=== PATIENT | male | born 1940 | race Caucasian/White ===

== ENCOUNTER 2018-02-11 11:12 | Emergency (ER) | payer MEDICARE, BC ==
[2018-02-11] MEDS ORDERED: ONDANSETRON HCL 4 MG/2 ML SOL IV ONE (12:07)
[2018-02-11] MEDS ORDERED: ONDANSETRON HCL 4 MG/2 ML SOL ONE (12:08)
[2018-02-11 13:18] VITALS: TEMP 97
[2018-02-11 13:21] VITALS: PULSE 50
[2018-02-11 13:23] VITALS: BP 152/85; RESP 21; O2SAT 91
== END 2018-02-11 13:21 | disposition short-term general hospital (02) | DRG 87 ==
LOC: ED 11:12
DX: S06.5X0A Traumatic subdural hemorrhage without loss of consciousness, initial encounter (principal); S01.81XA Laceration without foreign body of other part of head, initial encounter
CPT/HCPCS: 70450; 72125; 96374; 99284; 99285; G0390; J2405; A6402

== ENCOUNTER 2018-05-24 11:26 | Observation (INO) | payer BC, MEDICARE ==
[2018-05-24] MEDS ORDERED: SODIUM CHLORIDE 0.9% 500 ML 500 ML IV ONE ×2 (11:56→13:35)
[2018-05-24 12:47] LABS: BASOPHILS % (AUTO) 2 % (0-3); EOSINOPHILS % (AUTO) 7 % (0-9); HEMATOCRIT 42 % (39-53); HEMOGLOBIN 13.1 gm/dl (13.5-17.7); LYMPHOCYTES % (AUTO) 27.3 % (10-50); MEAN CORPUSCULAR HEMOGLOBIN 31.5 pg (27.0-32.0); MEAN CORPUSCULAR HGB CONC 31.6 gm/dl (32.0-36.0); MONOCYTES % (AUTO) 12.5 % (0-12); NEUTROPHILS % (AUTO) 51.8 % (37-80)
[2018-05-24 12:50] LABS: ALBUMIN 3.5 gm/dl (3.4-5.0); BILIRUBIN,TOTAL 0.6 mg/dl (0.2-1.0); CALCIUM 8.6 mg/dl (8.5-10.1); CARBON DIOXIDE 24.1 mEq/L (21-32); CREATININE 1.98 mg/dl (0.80-1.30); POTASSIUM 4.8 mMol/L (3.5-5.1); THYROID STIMULATING HORMONE 2.189 uIU/ml (0.358-3.740); TOTAL PROTEIN 6.4 gm/dl (6.4-8.2)
[2018-05-24 12:53] LABS: MEAN CORPUSCULAR VOLUME 100 fL (80-100)
[2018-05-24 13:17] LABS: APPEARANCE,URINE Clear; BILIRUBIN,URINE NEGATIVE (NEGATIVE); COLOR,URINE Yellow; GLUCOSE, URINE (UA) NEGATIVE (NEGATIVE); KETONES,URINE 1+ (NEGATIVE); LEUKOCYTE ESTERASE ,URINE NEGATIVE (NEGATIVE); NITRATE,URINE NEGATIVE (NEGATIVE); OCCULT BLOOD,URINE 1+ (NEG-TRACE); PH,URINE 5.5; UROBILINOGEN,URINE 0.2 (0.2-1.0 EU)
[2018-05-24 13:34] LABS: AMPHETAMINES NEGATIVE (NEGATIVE); BACTERIA 1+ (< 1+); BARBITUATES NEGATIVE (NEGATIVE); BENZODIAZEPINES NEGATIVE (NEGATIVE); CANNABINOL(THC) NEGATIVE (NEGATIVE); COCAINE(COC) NEGATIVE (NEGATIVE); CRYSTALS NEGATIVE (0-3 AVE/HPF); METHADONE NEGATIVE (NEGATIVE); METHAMPHETAMINES NEGATIVE (NEGATIVE); OPIATES(OPI) NEGATIVE (NEGATIVE); OXYCODONE(OXY) NEGATIVE (NEGATIVE); PROPOXYPHENE(PPX) NEGATIVE (NEGATIVE); TRICYCLIC ANTIDEPRESSANTS POSITIVE (NEGATIVE)
[2018-05-24] MEDS ORDERED: PATIENT EDUCATION 1 MISC PRN (17:01)
[2018-05-24] MEDS ORDERED: NITROGLYCERIN 0.4 MG TAB SL PRN (18:19)
[2018-05-24] MEDS ORDERED: DOCUSATE SODIUM 100 MG SGL PO PRN (18:19)
[2018-05-24] MEDS: SODIUM CHLORIDE 0.9% 1000ML 1,000 ML IV SCH (19:41)
[2018-05-24] MEDS ORDERED: METOPROLOL SUCCINATE 50 MG ER TAB ONE (21:25)
[2018-05-24] MEDS: QUETIAPINE FUMARATE 25 MG TAB PO SCH (21:28)
[2018-05-24] MEDS: BUPROPION HCL 150 MG PO SCH (21:28)
[2018-05-24] MEDS: METOPROLOL SUCCINATE 25 MG TAB.ER.24H PO SCH (21:29)
[2018-05-24 21:35] VITALS: O2SAT 95
[2018-05-25] MEDS: SODIUM CHLORIDE 0.9% 1000ML 1,000 ML IV SCH (05:50)
[2018-05-25 07:32] LABS: CALCIUM 8.1 mg/dl (8.5-10.1); CARBON DIOXIDE 21.9 mEq/L (21-32); CREATININE 1.71 mg/dl (0.80-1.30); POTASSIUM 4.1 mMol/L (3.5-5.1)
[2018-05-25] MEDS ORDERED: LOVASTATIN 10 MG TAB PO SCH ×2 (09:00)
[2018-05-25] MEDS: BUPROPION HCL 150 MG PO SCH ×2 (09:34→21:16)
[2018-05-25] MEDS: TAMSULOSIN HYDROCHLORIDE 0.4 MG CAP PO SCH (09:35)
[2018-05-25] MEDS: ASPIRIN EC 81 MG PO SCH (09:35)
[2018-05-25] MEDS: PANTOPRAZOLE SODIUM 40 MG ECT PO SCH (09:36)
[2018-05-25] MEDS: LOVASTATIN 20 MG TABLET PO SCH (09:38)
[2018-05-25] MEDS ORDERED: PNEUMOC 13-VAL CONJ-DIP CRM/PF 0.5 ML SYRINGE IM ONE (10:05)
[2018-05-25] MEDS ORDERED: HALOPERIDOL LACTATE 5 MG/ML SOL IM ONE (20:59)
[2018-05-25] MEDS: QUETIAPINE FUMARATE 25 MG TAB PO SCH (21:15)
[2018-05-25] MEDS: SODIUM CHLORIDE 0.9% FLUSH 10 ML SOL IV SCH (21:15)
[2018-05-25] MEDS: METOPROLOL SUCCINATE 25 MG TAB.ER.24H PO SCH (21:15)
[2018-05-26] MEDS: SODIUM CHLORIDE 0.9% FLUSH 10 ML SOL IV SCH ×2 (01:52→08:00)
[2018-05-26 08:34] VITALS: BP 151/81; PULSE 74; RESP 20; TEMP 97
[2018-05-26] MEDS ORDERED: QUETIAPINE FUMARATE 25 MG TAB PO SCH (08:51)
[2018-05-26] MEDS: BUPROPION HCL 150 MG PO SCH (09:38)
[2018-05-26] MEDS: TAMSULOSIN HYDROCHLORIDE 0.4 MG CAP PO SCH (09:38)
[2018-05-26] MEDS: ASPIRIN EC 81 MG PO SCH (09:38)
[2018-05-26] MEDS: LOVASTATIN 20 MG TABLET PO SCH (09:39)
[2018-05-26] MEDS: PANTOPRAZOLE SODIUM 40 MG ECT PO SCH (09:39)
== END 2018-05-26 14:50 | DRG 884 ==
LOC: ED 11:26 → UNDOADMOB 15:40 → ACUTE CARE 15:40
PROVIDERS: ADMIT Family Medicine; ATTEND Family Medicine
PROC: F02Z0FZ Bathing/Showering Assessment using Assistive, Adaptive, Supportive or Protective Equipment (ICD-10-PCS; principal; 2018-05-25)
PROC: F02Z3FZ Grooming/Personal Hygiene Assessment using Assistive, Adaptive, Supportive or Protective Equipment (ICD-10-PCS; 2018-05-25)
DX: F03.90 Unspecified dementia, unspecified severity, without behavioral disturbance, psychotic disturbance, mood disturbance, and anxiety (principal); R44.3 Hallucinations, unspecified; Z91.81 History of falling; I48.91 Unspecified atrial fibrillation; I10 Essential (primary) hypertension; R79.82 Elevated C-reactive protein (CRP); E78.5 Hyperlipidemia, unspecified
CPT/HCPCS: 36415; 70450; 80048; 80053; 80305; 81001; 83880; 84443; 85025; 90670; 96365; 96366; 99284; 99285; J1630; A6232; A9270-GY; G0008